=== PATIENT | female | born 1940 | race Caucasian/White ===

== ENCOUNTER → 2020-02-04 | Outpatient (CLI) | payer MEDICARE ==
[2020-02-04 12:05] LABS: BASOPHILS ABSOLUTE AUTO 0.06 K/mm3 (0.00-0.23); BASOPHILS PERCENT AUTO 1 % (0-2); EOSINOPHILS ABSOLUTE AUTO 0.24 K/mm3 (0.00-0.68); EOSINOPHILS PERCENT AUTO 3 % (0-6); Hemoglobin 13.8 g/dL (11.5-16.0); IMMATURE GRAN ABSOLUTE AUTO 0.01 K/mm3 (0.00-0.10); IMMATURE GRAN PERCENT AUTO 0 % (0-1); LYMPHOCYTES ABSOLUTE AUTO 1.24 K/mm3 (0.84-5.20); LYMPHOCYTES PERCENT AUTO 16 % (21-46); MONOCYTES ABSOLUTE AUTO 0.99 K/mm3 (0.16-1.47); MONOCYTES PERCENT AUTO 13 % (4-13); Mean Corpuscular HGB 33.4 pg (26.0-34.0); Mean Corpuscular HGB Conc 32.9 g/dL (31.5-36.5); Mean Corpuscular Volume 102 fL (80-100); Mean Platelet Volume 10.3 fL (9.1-12.4); NEUTROPHILS ABSOLUTE AUTO 5.11 K/mm3 (1.96-9.15); NEUTROPHILS PERCENT AUTO 67 % (41-73); Platelet Count 339 K/mm3 (150-400); Red Blood Cell Count 4.13 M/mm3 (3.80-5.20); White Blood Cell Count 7.65 K/mm3 (4.00-11.30)
[2020-02-04 12:46] LABS: Anion Gap 4 mmol/L (6-16); Blood Urea Nitrogen 14 mg/dL (8-24); Bun/Creatinine Ratio 16.2 (12.0-20.0); CO2, Blood 30 mmol/L (21-32); Calcium, Blood 9.2 mg/dL (8.5-10.1); Chloride, Blood 106 mmol/L (98-108); Creatinine, Blood 0.86 mg/dL (0.40-1.00); Glomerular Filtration Rate >60 (60-); Glucose, Blood 83 mg/dL (70-99); Potassium, Blood 4.3 mmol/L (3.5-5.5); Sodium, Blood 140 mmol/L (136-145)
== END | disposition home or self-care (01) ==
LOC: LAB EV 11:58 → LAB SHORT 11:58
PROVIDERS: Family Medicine
DX: J18.0 Bronchopneumonia, unspecified organism (principal)
CPT/HCPCS: 80048; 85025

== ENCOUNTER 2024-12-29 08:55 | Inpatient (IN) | payer MEDICARE ==
[~2024-12-29] VITALS: Ht 160 cm; Wt 90.4 kg
[2024-12-29] MEDS ORDERED: ESOMEPRAZOLE MA40 MG PO (09:09)
[2024-12-29 09:38] LABS: BASOPHILS ABSOLUTE AUTO 0.06 K/mm3 (0.00-0.23); BASOPHILS PERCENT AUTO 1 % (0-2); EOSINOPHILS ABSOLUTE AUTO 0.12 K/mm3 (0.00-0.68); EOSINOPHILS PERCENT AUTO 2 % (0-6); Hematocrit 45.6 % (33.0-51.0); Hemoglobin 15.1 g/dL (11.5-16.0); IMMATURE GRAN ABSOLUTE AUTO 0.01 K/mm3 (0.00-0.10); IMMATURE GRAN PERCENT AUTO 0 % (0-1); LYMPHOCYTES ABSOLUTE AUTO 1.28 K/mm3 (0.84-5.20); LYMPHOCYTES PERCENT AUTO 22 % (21-46); MONOCYTES ABSOLUTE AUTO 0.91 K/mm3 (0.16-1.47); MONOCYTES PERCENT AUTO 16 % (4-13); Mean Corpuscular HGB Conc 33.1 g/dL (31.5-36.5); Mean Corpuscular Volume 99 fL (80-100); NEUTROPHILS ABSOLUTE AUTO 3.49 K/mm3 (1.96-9.15); NEUTROPHILS PERCENT AUTO 60 % (41-73); NRBC ABSOLUTE 0.00 K/mm3 (0.00-0.02); NRBC Auto 0.0 /100 WBC (0.0-0.2); Platelet Count 248 K/mm3 (150-400); RDW Coefficient Variation 12.2 % (11.7-14.2); RDW Standard Deviation 44.7 fL (35.1-46.3)
[2024-12-29 09:54] LABS: Alanine Aminotransfer (ALT/SGP 21.0 U/L (12-78); Albumin, Blood 4.0 g/dL (3.4-5.0); Albumin/Globulin Ratio 1.1 (0.8-1.8); Anion Gap 8.0 mmol/L (3-11); Aspartate Aminotrans (AST/SGOT 20.0 U/L (12-37); Bilirubin, Total 0.5 mg/dL (0.1-1.0); Blood Urea Nitrogen 14.0 mg/dL (8-24); CO2, Blood 28.0 mmol/L (21-32); Calcium, Blood 8.6 mg/dL (8.5-10.1); Chloride, Blood 106.0 mmol/L (98-108); Creatinine, Blood 0.84 mg/dL (0.40-1.00); Globulin, Blood 3.7 g/dL (2.2-4.0); Glucose, Blood 116.0 mg/dL (70-99); Potassium, Blood 4.0 mmol/L (3.5-5.5); Sodium, Blood 138.0 mmol/L (136-145); Total Protein, Blood 7.7 g/dL (6.4-8.2)
[2024-12-29] MEDS ORDERED: Nitroglycerin 1 INCH/GM PKT TOP ONE (13:35)
[2024-12-29 13:50] LABS: Anti-Xa UFH, PHA Monitoring <0.10 IU/mL; Prothrombin Time Results 10.9 Sec (9.7-11.5)
[2024-12-29] MEDS ORDERED: Heparin Sodium,Porcine/0.5 NS 500 ML IV SCH (14:00)
[2024-12-29] MEDS ORDERED: Dose Adjust by Pharmacy XX STA ×2 (14:00→22:02)
[2024-12-29] MEDS ORDERED: Heparin Sodium 5000 Units/ML 1ML MDV IV ONE (14:00)
[2024-12-29 15:48] VITALS: BP 177/105
[2024-12-29 16:21] VITALS: BP 152/110
[2024-12-29] MEDS ORDERED: Isosorbide Mononitrate 30 MG TABCR PO SCH (16:45)
[2024-12-29 17:11] VITALS: BP 167/56
--- NOTE | 2024-12-29 18:25 | NUR ---
SHIFT SUMMARY: PATIENT ADMIT TO PCU 18. ABLE TO STAND AND TRANSFER. DENIES PAINS. ABLE TO MAKE NEEDS KNOWN. USING ALL EXTREMITIES. ABLE TO REPOSITION SELF IN BED. TELE SHOWING SR WITH HR 60'S. DENIES CHEST PAIN/PRESSURE/PALPITATIONS AT THIS TIME. HEPARIN GTT INFUSING PER EMAR. NITRO PATCH TO CHEST ON ADMISSION TO PCU. DR. TUTTLE TO BEDSIDE. ORDERS FOR LOSARTAN 25MG PO DAILY STARTING NOW, IMDUR 30MG PO DAILY STARTING NOW, ASPIRIN 81MG DAILY STARTING TOMORROW MORNING, HEART HEALTHY DIET FOR DINNER, NPO AT MIDNIGHT AND TO REMOVE NITRO PATCH ONCE PATIENT WAS GIVEN PO IMDUR, REDRAW TROPONIN AT 1700. ORDERS IN PLACE. NO EDEMA NOTED. ON ROOM AIR, SATING ABOVE 95%. LUNG SOUNDS CLEAR AND DIM IN BASES. DENIES SOB/COUGH. BOWEL TONES PRESENT. TOLERATING PO DIET. DENIES ABDOMINAL PAIN/NAUSEA. SKIN C/D/I. FAMILY AT BEDSIDE FOR MD ROUNDING. DR. NERI UPDATED ON PLAN. CALL LIGHT IN REACH. PATIENT EDUCATED ON FALL RISK WITH IV INFUSION. DENIES NEEDS AT THIS TIME.
[2024-12-29 19:06] LABS: CHOL/HDL RATIO 3.9; Cholesterol 202 mg/dL (50-200); HDL Cholesterol 52 mg/dL (>39); LDL/HDL RATIO 2.3; Low Density Lipoprotein Chol 120 mg/dL (0-110); Triglycerides 152 mg/dL (30-160); Very Low Density Lipoprot Chol 30 mg/dL (6-32)
[2024-12-29 20:39] VITALS: BP 142/66
[2024-12-30] VITALS (21 sets, daily range): BP systolic 122–200; BP diastolic 54–134
--- NOTE | 2024-12-30 01:01 | NUR ---
PT HAD A DECREASE IN MENTATION, MORE SOMNOLENT AND CONFUSED. RT PLACED PT BACK ON AIRVO AND CALL PLACED TO DR. HANNAH AND ORDERS FOR VBG OBTAINED.
[2024-12-30 03:29] LABS: BASOPHILS ABSOLUTE AUTO 0.04 K/mm3 (0.00-0.23); BASOPHILS PERCENT AUTO 1 % (0-2); EOSINOPHILS ABSOLUTE AUTO 0.17 K/mm3 (0.00-0.68); EOSINOPHILS PERCENT AUTO 3 % (0-6); Hematocrit 39.1 % (33.0-51.0); Hemoglobin 12.8 g/dL (11.5-16.0); IMMATURE GRAN ABSOLUTE AUTO 0.01 K/mm3 (0.00-0.10); IMMATURE GRAN PERCENT AUTO 0 % (0-1); LYMPHOCYTES ABSOLUTE AUTO 1.67 K/mm3 (0.84-5.20); LYMPHOCYTES PERCENT AUTO 31 % (21-46); MONOCYTES ABSOLUTE AUTO 0.89 K/mm3 (0.16-1.47); MONOCYTES PERCENT AUTO 17 % (4-13); Mean Corpuscular HGB Conc 32.7 g/dL (31.5-36.5); Mean Corpuscular Volume 100 fL (80-100); NEUTROPHILS ABSOLUTE AUTO 2.63 K/mm3 (1.96-9.15); NEUTROPHILS PERCENT AUTO 49 % (41-73); NRBC ABSOLUTE 0.00 K/mm3 (0.00-0.02); NRBC Auto 0.0 /100 WBC (0.0-0.2); Platelet Count 231 K/mm3 (150-400); RDW Coefficient Variation 12.4 % (11.7-14.2); RDW Standard Deviation 45.5 fL (35.1-46.3)
[2024-12-30 03:56] LABS: Anion Gap 7.0 mmol/L (3-11); Blood Urea Nitrogen 13.0 mg/dL (8-24); CO2, Blood 27.0 mmol/L (21-32); Calcium, Blood 8.3 mg/dL (8.5-10.1); Chloride, Blood 108.0 mmol/L (98-108); Creatinine, Blood 0.88 mg/dL (0.40-1.00); Glucose, Blood 114.0 mg/dL (70-99); Potassium, Blood 3.9 mmol/L (3.5-5.5); Sodium, Blood 138.0 mmol/L (136-145)
[2024-12-30] MEDS ORDERED: Dose Adjust by Pharmacy XX STA (04:07)
[2024-12-30] MEDS ORDERED: Verapamil HCL 2.5 MG/ML 2ML Injection ONE (06:10)
[2024-12-30] MEDS ORDERED: Nitroglycerin 2 MG/20 ML BTL ONE (06:11)
[2024-12-30] MEDS ORDERED: NS 250 ML IV ONE (06:11)
[2024-12-30] MEDS ORDERED: NS 2,000 ML IV ONE (06:11)
[2024-12-30] MEDS ORDERED: Heparin Sodium 1000 Units/ML 10ML MDV ONE ×2 (06:11→07:50)
--- NOTE | 2024-12-30 06:31 | NUR ---
PT STABLE THROUGHOUT SHIFT, NO C/O CHEST PAIN/PRESSURE. NO C/O DYSPNEA/SOB. VITAL SIGNS WNL. PT TOLERATING HEPARIN INFUSION WELL W/O S/S BLEEDING/BRUISING. PT WAS NPO FROM 0000 FOR ANGIO THIS AM. PT LEFT FROM ANGIO AT 0630.
[2024-12-30] MEDS ORDERED: FentaNYL Citrate 50 MCG/ML 2 ML Injection ONE ×2 (06:44→08:05)
[2024-12-30] MEDS ORDERED: Midazolam HCl 1MG / ML 2ML Vial ONE ×2 (06:44→08:06)
--- NOTE | 2024-12-30 09:00 | NUR ---
PT ARRIVED IN ICU APPROX 0845 DIRECTLY FROM AGRICULTURAL EDUCATION TEACHER. NEURO: DROWSY RASS -1, RECIEVED FENTANYL AND VERSED IN AGRICULTURAL EDUCATION TEACHER. PERRLA, MOVES EXTREMITIES. CARDIAC: AFIB/PAC BIGIM. SBP: 170S, HR:60-70S. DR CORONEL AND DR TUTTLE AT BEDSIDE. REVIEWED VS. PLAN FOR PO MEDS WHEN PT RECOVERS FROM MEDICATIONS USED IN AGRICULTURAL EDUCATION TEACHER. BOTH MDS UPDATED FAMILY IN THE ROOM, RADHA AND DAUGHTER. COMPLAINTS OF 8/10 CHEST PRESSURE. VERBAL ORDER RECIEVED FOR PRN FENTANYL. BASELINE EKG TO BE COMPLETED PER DR CALLE PULLuci: LUNGS CLEAR TO AUSCULTATION. SPO2 93-94% ON RA. O2 WITH ETCO2 PLACED AT 2LPM, SAT IMPROVED TO 100%. GI: ABDOMEN IS SOFT/NON TENDER. +NAUSEA, VERBAL ORDER RECIEVED FOR PRN ZOFRAN. : RN REPORT OF CONTIENT OF BOWEL AND BLADDER. SKIN: R WRIST 2 ATTEMPT PCI SITES WITH FOAM/TAPE NO SIGNS OF BLEEDING, SURROUNDING AREA IS SOFT AND OF NORMAL COLORING, CMS INTACT. L WRIST PCI SITE, TR BAND IN PLACE, NO SIGNS OF BLEEDING, SURROUNDING AREA IS SOFT AND OF NORMAL COLORING, CMS INTACT. FAMILY AT BEDSIDE, RADHA AND DAUGHTER.
[2024-12-30] MEDS ORDERED: FentaNYL Citrate 50 MCG/ML 2 ML Injection IV PRN (09:10)
[2024-12-30] MEDS ORDERED: Ondansetron HCl 2 MG / ML 2ML Vial IV PRN (09:20)
--- NOTE | 2024-12-30 10:45 | NUR ---
R RADIAL AND R ULNAR ARTERY ACCESS IN PCI NOW VISIBLE HEMATOMA TO RFA. CALLED AN NOTIFIED DR TUTTLE. AREA OUTLINED AND PRESSURE DRESSING PLACED.
--- NOTE | 2024-12-30 13:47 | NUR ---
PT REPORTING SOME ABDOMINAL CRAMPING ATTEMPTING TO HAVE A BOWEL MOVEMENT X 30-45 MIN. NEW ORDER RECIEVED FOR GAS X. UP AND BACK TO THE [facility] X2 WITH NO RESULT AT THIS TIME
--- NOTE | 2024-12-30 15:27 | NUR ---
SHIFT SUMMARY NEURO: ALERT AND ORIENTED X4. ABLE TO MAKE HER NEEDS KNOWN AND CALLS APPROPRIATELY. MOVES ALL EXTERMITIES WELL W/ GOOD HAND SPECIAL EFFECTS MAKEUP ARTIST. CARDIAC: SR-SB W/ PACS, SBP 140-160S. DR TUTTLE IS AWARE OF HTN. HR 55-65. CHEST PRESSURE PRESENT 2/10 PAIN. IMPROVED AFTER PRN PAIN MEDICATION. PULM: LUNGS CLEAR TO AUSCULTATION. SPO2 >94% ON RA. DENIES ANY SOB OR WOB. GI: ABDOMEN IS SOFT/NON TENDER. +CRAMPING BUT THEN PT HAD BM AND THIS RESOLVED PRN SIMETHCONE HELPFUL WITH GAS WELL. GOOD APPETITE. : CONTINENT OF URINE AND STOOL. SKIN: 2 ATTEMPTED PCI SITES ON R WRIST -RADIAL/ULNA, SMALL HEMATOMA MEDIAL TO SITES. PHOTO IN CHART. AREA NO LONGER FIRM AFTER COMPRESSION. TENDERNESS HAS RESOLVED. L WRIST PCI SITE 0 HEMATOMA. SMALL AREA OF ECCYMOSIS MEDIAL TO THIS PCI SITE WELL. COMPRESSION APPLIED AREA IS SOFT TO PALPATION. TR BAND DEFLATED. FAMILY INTO VISIT SPOUSE, DAUGHTER AND GRANDDAUGHTER STATUS CHANGED TO PCU.
[2024-12-31] VITALS (10 sets, daily range): BP systolic 109–175; BP diastolic 48–87
[2024-12-31 03:42] LABS: BASOPHILS ABSOLUTE AUTO 0.04 K/mm3 (0.00-0.23); BASOPHILS PERCENT AUTO 1 % (0-2); EOSINOPHILS ABSOLUTE AUTO 0.10 K/mm3 (0.00-0.68); EOSINOPHILS PERCENT AUTO 1 % (0-6); Hematocrit 40.8 % (33.0-51.0); Hemoglobin 13.6 g/dL (11.5-16.0); IMMATURE GRAN ABSOLUTE AUTO 0.02 K/mm3 (0.00-0.10); IMMATURE GRAN PERCENT AUTO 0 % (0-1); LYMPHOCYTES ABSOLUTE AUTO 1.22 K/mm3 (0.84-5.20); LYMPHOCYTES PERCENT AUTO 17 % (21-46); MONOCYTES ABSOLUTE AUTO 1.09 K/mm3 (0.16-1.47); MONOCYTES PERCENT AUTO 15 % (4-13); Mean Corpuscular HGB Conc 33.3 g/dL (31.5-36.5); Mean Corpuscular Volume 98 fL (80-100); NEUTROPHILS ABSOLUTE AUTO 4.90 K/mm3 (1.96-9.15); NEUTROPHILS PERCENT AUTO 66 % (41-73); NRBC ABSOLUTE 0.00 K/mm3 (0.00-0.02); NRBC Auto 0.0 /100 WBC (0.0-0.2); Platelet Count 241 K/mm3 (150-400); RDW Coefficient Variation 12.1 % (11.7-14.2); RDW Standard Deviation 43.9 fL (35.1-46.3)
[2024-12-31 04:07] LABS: Alanine Aminotransfer (ALT/SGP 20.0 U/L (12-78); Albumin, Blood 3.8 g/dL (3.4-5.0); Albumin/Globulin Ratio 1.2 (0.8-1.8); Anion Gap 9.0 mmol/L (3-11); Aspartate Aminotrans (AST/SGOT 32.0 U/L (12-37); Bilirubin, Total 0.8 mg/dL (0.1-1.0); Blood Urea Nitrogen 10.0 mg/dL (8-24); CO2, Blood 27.0 mmol/L (21-32); Calcium, Blood 8.9 mg/dL (8.5-10.1); Chloride, Blood 107.0 mmol/L (98-108); Creatinine, Blood 0.89 mg/dL (0.40-1.00); Globulin, Blood 3.3 g/dL (2.2-4.0); Glucose, Blood 101.0 mg/dL (70-99); Potassium, Blood 3.8 mmol/L (3.5-5.5); Sodium, Blood 139.0 mmol/L (136-145); Total Protein, Blood 7.1 g/dL (6.4-8.2)
--- NOTE | 2024-12-31 05:11 | NUR ---
SHIFT SUMMARY: PT A/OX4 AT START OF SHIFT, CONTINUES TO BE A/Ox4 AND ANSWER QUESTIONS APPROPRIATLY. PT UNABLE TO SLEEP FOR MOST OF THE NIGHT DUE TO SOME CONFUSION THINKING HER FAMILY IS RIGHT OUTSIDE THE DOOR OR IN THE WAITING ROOM, TRYING TO GET OUT OF BED WITHOUT ASSISTANCE AND WANDERING AROUND THE ROOM LOOKING OUT THE WINDOW THINKING THERE ARE DOGS OUTSIDE THE WINDOW. PT STILL ABLE TO ANSWER ORIENTATION QUESTIONS DESPITE THIS CONFUSION. PERRLA, NO OTHER NUERO CHANGES BESIDES THIS CONFUSION. SPOKE WITH PT GRANDDAUGHTER AT START OF SHIFT AND SHE SAID THAT THE PT HAS BECOME INCREASINGLY FORGETFUL AND SHE THINKS SHE MAY BE STARTING TO GET SOME MEMORY ISSUES. CONTINUE TO REORIENT PT. SMALL BRUISING NOTED TO LEFT RADIAL SITE, SKIN SOFT, NO CHANGES THIS SHIFT. RIGHT RADIAL SITE HAS LARGE BRUISE, OUTLINED AT BEGINNING OF SHIFT, SMALL BRUISING NOTED OUTSIDE OF OUTLINE T/O THE SHIFT. PT TOLD MULTIPLE TIMES TO REST HER ARMS AND NOT PUT PRESSURE ON THEM, HOWEVER PT VERY FORGETFUL AND CONTINUES TO ATTEMPT TO GET OUT OF BED W/O ASSISTANCE AND PUT PRESSURE ON HER WRISTS/ARMS. VSS. MONITOR SHOWS SINUS RYTHM, RATE 60-70s. WILL REPORT TO ONCOMING RN.
--- NOTE | 2024-12-31 10:33 | NUR ---
DR. TUTTLE TO ROOM FOR PT EVAL. ORDERS TO INCREASED DAILY PO DOSE OF IMDUR TO 60MG. ORDERS TO REMOVE PRESSURE TO R. RADIAL HEMATOMA AND REASSES IN ONE HOUR.
[2024-12-31] MEDS ORDERED: Isosorbide Mononitrate 30 MG TABCR PO ONE (10:35)
--- NOTE | 2024-12-31 11:46 | NUR ---
DR. CHANG TO ROOM FOR PT EVAL, PT DENIES COMPLAINTS. NO NEW ORDERS.
--- NOTE | 2024-12-31 14:29 | NUR ---
PT UPDATE PT AGITATED AND CONFUSED. OBSERVED TO BE RESTLESS IN ROOM, DRESSING SELF- PLACING PERSONAL BELONGINGS INTO TRASHCAN. PT COMPLAINING OF RAIN COMING FROM CEILING AND IS ANGRY WITH CHARGE NURSE FOR CONFIRMING THERE IS NO LEAK IN ROOF. PT ATTENDS DRY AND REPLACED AT THIS TIME. PT APPEARS TO BE PREPARING TO TRY TO LEAVE HOSPITAL. PLAN OF CARE FOR OVERNIGHT STAY DISCUSSED W/ PT. DR. CHANG CONTACTED AND INFORMED OF PTS CONFUSION AND AGITATION- ORDERS FOR PO SEROQUEL 50MG RECIEVED AND ENTERED BY THIS RN. ADDITIONAL FAMILY MEMBERS TO ROOM W/ PT AND PT APPEARS CALMER AT THIS TIME. INCREASE MONITORING TO CONTINUE. PLAN OF CARE ONGOING.
--- NOTE | 2024-12-31 18:08 | NUR ---
TRANSFER: REPORT RECEIVED FROM JINA CHAN. PT ARRIVES TO UNIT, TRANSFERED TO BED AND FALLS ASLEEP. PT IS ACCOMPANIED BY HER SPOUSE, ERMELINDA. VS UPDATED IN CHART. CALL LIGHT IN REACH.
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
[2025-01-01 04:59] VITALS: BP 160/60
--- NOTE | 2025-01-01 06:39 | NUR ---
SHIFT SUMMARY PATIENT ALERT AND ORINETED X3, FORGETFUL AND IMPULSIVE, AT BEDSIDE TO HELP REDIRECT THE PATIENT. PATIENT SLEPT ALL NIGHT. ON ROOM AIR WITH SPO2 >90%. WILL CONTINUE TO MONITOR. CALL LIGHT WITHIN REACH.
[2025-01-01 07:50] VITALS: BP 155/94
[2025-01-01] MEDS ORDERED: Isosorbide Mononitrate 60 MG TABCR PO SCH (09:00)
[2025-01-01] MEDS ORDERED: ATOR20 PO (09:47)
[2025-01-01] MEDS ORDERED: ASPI81CH PO (09:47)
[2025-01-01] MEDS ORDERED: Imdur-ER60 MG PO (09:48)
[2025-01-01] MEDS ORDERED: LOSA25 PO (09:48)
[2025-01-01] MEDS ORDERED: METO25ER PO (09:49)
[2025-01-01] MEDS ORDERED: TICA90TA PO (09:49)
--- NOTE | 2025-01-01 10:42 | NUR ---
PT DISCHARGED TO HOME TODAY DISCHARGED WITH ORDERS. NEW MEDICATIONS AND DC INSTRUCTIONS DISCLSOED WITH BOTH DAUGHTER AND AT THE BEDSIDE. ALL AGREEABLE WITH DISCHARGED PLANS. VITALS HAS BEEN STABLE. PT HAS BEEN GETTING UP WITH NO ISSUES. ALL QUESTIONS ASKED DR CHANG CAME TO ROUND ON PATIENT. ACCOMPANIED BY WHEELCHAIR FOR TRANSPORT, PROVIDED TRANSPORTATION
== END 2025-01-01 10:26 | disposition home or self-care (01) | DRG 322 ==
LOC: ER 08:55 → PCU 14:34 → ICUE 14:34 → PCU 15:40 → ICUE 12-30 08:13 → PCU 12-31 17:53
PROVIDERS: Student in an Organized Health Care Education/Training Program; ADMIT Internal Medicine
PROC: 027034Z Dilation of Coronary Artery, One Artery with Drug-eluting Intraluminal Device, Percutaneous Approach (ICD-10-PCS; principal; 2024-12-30)
PROC: 4A023N7 Measurement of Cardiac Sampling and Pressure, Left Heart, Percutaneous Approach (ICD-10-PCS; 2024-12-30)
PROC: B2111ZZ Fluoroscopy of Multiple Coronary Arteries using Low Osmolar Contrast (ICD-10-PCS; 2024-12-30)
PROC: B34JZZZ Ultrasonography of Left Upper Extremity Arteries (ICD-10-PCS; 2024-12-30)
DX: I21.4 Non-ST elevation (NSTEMI) myocardial infarction (principal); I12.9 Hypertensive chronic kidney disease with stage 1 through stage 4 chronic kidney disease, or unspecified chronic kidney disease; N18.30 Chronic kidney disease, stage 3 unspecified; K21.9 Gastro-esophageal reflux disease without esophagitis; E78.5 Hyperlipidemia, unspecified; R73.03 Prediabetes; Z66 Do not resuscitate; Z79.02 Long term (current) use of antithrombotics/antiplatelets; Z79.82 Long term (current) use of aspirin; Z79.899 Other long term (current) drug therapy; Z86.73 Personal history of transient ischemic attack (TIA), and cerebral infarction without residual deficits; Z90.710 Acquired absence of both cervix and uterus; Z90.49 Acquired absence of other specified parts of digestive tract; Z98.890 Other specified postprocedural states
CPT/HCPCS: 36415; 71046; 76937; 80048; 80053; 80061; 83036; 83690; 83735; 84484; 85025; 85347; 85379; 85520; 85610; 85730; 93005; 93010; 93306; 93458; 96374; 99152; 99153; 99285-25; A9270; C1725; C1769; C1874; C1887; C1894; C9600; J0461; J1644; J2250; J2405; J3010; J3246; J7030; J7050; Q9967

== ENCOUNTER 2025-01-17 13:29 | Emergency (ER) | payer MEDICARE ==
[~2025-01-17] VITALS: Ht 175.3 cm; Wt 86.2 kg
[~2025-01-17 13:29] MED LIST: ASPI81CH PO; ATOR20 PO; ESOMEPRAZOLE MA40 MG PO; Imdur-ER60 MG PO; LOSA25 PO; METO25ER PO; TICA90TA PO
[2025-01-17] MEDS ORDERED: Ondansetron HCl 2 MG / ML 2ML Vial IV PRN (14:15)
[2025-01-17 14:20] LABS: BASOPHILS ABSOLUTE AUTO 0.04 K/mm3 (0.00-0.23); BASOPHILS PERCENT AUTO 0 % (0-2); EOSINOPHILS ABSOLUTE AUTO 0.11 K/mm3 (0.00-0.68); EOSINOPHILS PERCENT AUTO 1 % (0-6); Hematocrit 41.7 % (33.0-51.0); Hemoglobin 14.0 g/dL (11.5-16.0); IMMATURE GRAN ABSOLUTE AUTO 0.04 K/mm3 (0.00-0.10); IMMATURE GRAN PERCENT AUTO 0 % (0-1); LYMPHOCYTES ABSOLUTE AUTO 0.86 K/mm3 (0.84-5.20); LYMPHOCYTES PERCENT AUTO 8 % (21-46); MONOCYTES ABSOLUTE AUTO 0.86 K/mm3 (0.16-1.47); MONOCYTES PERCENT AUTO 8 % (4-13); Mean Corpuscular HGB Conc 33.6 g/dL (31.5-36.5); Mean Corpuscular Volume 98 fL (80-100); NEUTROPHILS ABSOLUTE AUTO 9.49 K/mm3 (1.96-9.15); NEUTROPHILS PERCENT AUTO 83 % (41-73); NRBC ABSOLUTE 0.00 K/mm3 (0.00-0.02); NRBC Auto 0.0 /100 WBC (0.0-0.2); Platelet Count 256 K/mm3 (150-400); RDW Coefficient Variation 12.4 % (11.7-14.2); RDW Standard Deviation 44.4 fL (35.1-46.3)
[2025-01-17 14:52] LABS: Alanine Aminotransfer (ALT/SGP 20.0 U/L (12-78); Albumin, Blood 3.8 g/dL (3.4-5.0); Albumin/Globulin Ratio 1.1 (0.8-1.8); Anion Gap 11.0 mmol/L (3-11); Aspartate Aminotrans (AST/SGOT 17.0 U/L (12-37); Bilirubin, Total 0.4 mg/dL (0.1-1.0); Blood Urea Nitrogen 11.0 mg/dL (8-24); CO2, Blood 26.0 mmol/L (21-32); Calcium, Blood 8.8 mg/dL (8.5-10.1); Chloride, Blood 106.0 mmol/L (98-108); Creatinine, Blood 0.81 mg/dL (0.40-1.00); Globulin, Blood 3.6 g/dL (2.2-4.0); Glucose, Blood 108.0 mg/dL (70-99); Potassium, Blood 3.8 mmol/L (3.5-5.5); Sodium, Blood 139.0 mmol/L (136-145); Total Protein, Blood 7.4 g/dL (6.4-8.2)
[2025-01-17 15:25] LABS: CORONAVIRUS COVID-19 AG Negative (NEGATIVE)
[2025-01-17 17:10] LABS: Source, Urine Voided
[2025-01-17 17:15] LABS: Bilirubin, Urine Neg (Neg); Color, Urine Yellow (P-Yellow); Glucose Qualitative, Urine Neg (Neg); Ketones, Urine Neg (Neg); Leukocyte Esterase, Urine 1+ (Neg); Protein, Urine 2+ (Neg); Specific Gravity, Urine 1.020 (1.003-1.022); Urobilinogen, Urine NORM (Normal)
[2025-01-17 18:08] LABS: Red Blood Cells, Urine 0-2 /hpf (0-2)
[2025-01-17 20:08] VITALS: BP 135/55
== END 2025-01-17 20:18 | disposition home or self-care (01) ==
LOC: ER 13:29
PROVIDERS: Emergency Medicine
DX: R68.83 Chills (without fever) (principal); Z79.82 Long term (current) use of aspirin; Z79.899 Other long term (current) drug therapy
CPT/HCPCS: 51701; 70450; 71045; 80053; 81001; 83690; 83880; 84484; 85025; 87077; 87086; 87186; 87428-QW; 93005; 93010; 99285-25

== ENCOUNTER → 2025-02-21 | Outpatient (CLI) | payer MEDICARE ==
[2025-02-21 13:18] LABS: Alanine Aminotransfer (ALT/SGP 18.0 U/L (12-78); Albumin, Blood 3.3 g/dL (3.4-5.0); Albumin/Globulin Ratio 0.9 (0.8-1.8); Anion Gap 13.0 mmol/L (3-11); Aspartate Aminotrans (AST/SGOT 17.0 U/L (12-37); Bilirubin, Total 0.6 mg/dL (0.1-1.0); Blood Urea Nitrogen 13.0 mg/dL (8-24); CO2, Blood 27.0 mmol/L (21-32); Calcium, Blood 8.9 mg/dL (8.5-10.1); Chloride, Blood 106.0 mmol/L (98-108); Creatinine, Blood 1.04 mg/dL (0.40-1.00); Globulin, Blood 3.6 g/dL (2.2-4.0); Glucose, Blood 97.0 mg/dL (70-99); Potassium, Blood 4.0 mmol/L (3.5-5.5); Sodium, Blood 142.0 mmol/L (136-145); Total Protein, Blood 6.9 g/dL (6.4-8.2); Uric Acid, Blood 6.4 mg/dL (2.6-6.0)
== END ==
LOC: LAB SHORT 13:04 → LAB 13:04
PROVIDERS: Student in an Organized Health Care Education/Training Program
DX: M10.9 Gout, unspecified (principal)
CPT/HCPCS: 80053; 84550